=== PATIENT | female | born 1970 | race Caucasian/White ===

== ENCOUNTER 2018-10-15 11:24 | Observation (INO) | payer MEDICAID, OTHER ==
[2018-10-15 11:24] VITALS: BMI 33.2
[2018-10-15] MEDS ORDERED: Iohexol 240 (50 ml) PO STA (12:20)
[2018-10-15] MEDS ORDERED: Sodium Chloride 0.9% 1,000 ML IV ONE (12:20)
--- NOTE | 2018-10-15 12:34 | C.PDOC ---
History Of Present Illness 47 year old female with no pertinent medical history presents to the ED referred by PMD Dr. Johnson for evaluation of abdominal pain and vomiting ongoing for 3 weeks. Denies radiation of pain. Denies any diarrhea, constipation, dysuria, hematuria, chest pain, back pain, fever, or chills. Time Seen by Provider: 10/15/18 11:48 Chief Complaint (Nursing): Abdominal Pain History Per: Patient History/Exam Limitations: no limitations Onset/Duration Of Symptoms: Days Current Symptoms Are (Timing): Still Present Location Of Pain/Discomfort: Diffuse Radiation Of Pain To:: None Quality Of Discomfort: "Pain" Associated Symptoms: Vomiting. denies: Fever, Chills, Diarrhea, Back Pain, Chest Pain, Urinary Symptoms Past Medical History Reviewed: Historical Data, Nursing Documentation, Vital Signs Vital Signs: Last Vital Signs Temp 98.8 F 10/15/18 11:32 Pulse 97 H 10/15/18 12:06 Resp 17 10/15/18 12:06 BP 148/88 10/15/18 12:06 Pulse Ox 98 10/15/18 12:06 - Medical History PMH: HTN Surgical History: No Surg Hx - [facility] Procedures INJECT/INFUSE NEC (11/13/14) Family History: States: No Known Family Hx - Social History Hx Alcohol Use: No Hx Substance Use: No - Immunization History Hx Tetanus Toxoid Vaccination: No Hx Influenza Vaccination: Yes (04/2018) Hx Pneumococcal Vaccination: No Review Of Systems Except As Marked, All Systems Reviewed And Found Negative. Constitutional: Negative for: Fever, Chills Cardiovascular: Negative for: Chest Pain Respiratory: Negative for: Shortness of Breath Gastrointestinal: Positive for: Vomiting, Abdominal Pain. Negative for: Diarrhea Genitourinary: Negative for: Dysuria, Hematuria, Vaginal Discharge, Vaginal Bleeding Musculoskeletal: Negative for: Back Pain Physical Exam - Physical Exam Appears: Non-toxic, No Acute Distress Skin: Warm, Dry, No Rash Head: Normacephalic Eye(s): bilateral: Normal Inspection Nose: Normal Oral Mucosa: Moist Neck: Supple Chest: Symmetrical Cardiovascular: Rhythm Regular, No Murmur Respiratory: Normal Breath Sounds, No Rales, No Rhonchi, No Wheezing Gastrointestinal/Abdominal: Soft, Tenderness (mild epigastric tenderness), No Distention, No Guarding, No Rebound Extremity: Bilateral: Atraumatic, Normal Color And Temperature, Normal ROM Neurological/Psych: Oriented x3, Normal Speech Gait: Steady ED Course And Treatment - Laboratory Results Result Diagrams: 10/15/18 12:35 10/15/18 12:35 Lab Interpretation: Normal Urine POC: Negative O2 Sat by Pulse Oximetry: 98 (RA) Pulse Ox Interpretation: Normal - CT Scan/US No standard instances Other Rad Studies (CT/US): Read By Radiologist, Radiology Report Reviewed CT/US Interpretation: FINDINGS: LOWER THORAX: The visualized lungs are clear. LIVER: Fatty liver. Normal in size with homogeneous enhancement. No gross lesion or ductal dilatation. GALLBLADDER AND BILE DUCTS: Well distended. No calcified gallstones, wall thickening or pericholecystic fluid. PANCREAS: Normal in size with homogeneous enhancement. No gross lesion or ductal dilatation. SPLEEN: Normal in size and appearance. ADRENALS: No discrete nodule. KIDNEYS AND URETERS: Normal in size with homogeneous enhancement. No hydronephrosis. No solid mass. VASCULATURE: No aortic aneurysm. There are no aortic atherosclerotic calcifications or mural plaque present. BOWEL: Evaluation of the bowel is limited in the absence of oral contrast. The small bowel loops are normal in caliber. The colon is grossly normal in appearance. No bowel wall thickening or obstruction. APPENDIX: Normal appendix. PERITONEUM: No free fluid. No free air. LYMPH NODES: No enlarged lymph nodes. BLADDER: Well distended and normal in appearance. REPRODUCTIVE: The uterus is anteverted and normal in size. An IUD remains in satisfactory position. BONES: No acute fracture. There are bilateral pars interarticularis defects at L5 without spondylolisthesis. OTHER FINDINGS: None. IMPRESSION: No acute abdominal or pelvic abnormality. Fatty liver. Progress Note: Treated with IVF NSS Reassessment Condition: Improved - Physician Consult Information Physician Contacted: Rosalina Johnson Outcome Of Conversation: admit Medical Decision Making Medical Decision Making: Plan - CT abd/pel - Bloodwork - Pepcid 20mg IVP - IV Fluids - HCG Urine - UA Disposition Discussed With : Rosalina Johnson Doctor Will See Patient In The: Hospital - Disposition Disposition: HOSPITALIZED Disposition Time: 16:00 Condition: STABLE - POA Present On Arrival: None - Clinical Impression Clinical Impression: Abdominal pain, Nausea, Vomiting - PA / INSURANCE CLAIMS ASSISTANT / Resident Statement MD/DO has reviewed & agrees with the documentation as recorded. - Scribe Statement The provider has reviewed the documentation as recorded by the Scribe Rosa Holden All medical record entries made by the Talitaibe were at my direction and p ersonally dictated by me. I have reviewed the chart and agree that the record accurately reflects my personal performance of the history, physical exam, medical decision making, and the department course for this patient. I have also personally directed, reviewed, and agree with the discharge instructions and disposition. Decision To Admit - Pt Status Changed To: Hospital Disposition Of: [facility] Extended Stay Bed - . Bed Request Type: Regular Admitting Physician: Rosalina Johnson Patient Diagnosis: Abdominal pain, Nausea, Vomiting
[2018-10-15] MEDS ORDERED: Sodium Chloride 0.9% 1,000 ML ONE (12:38)
[2018-10-15] MEDS ORDERED: Iohexol 240 (50 ml) ONE (12:39)
[2018-10-15 12:40] LABS: BASO % 0.4 % (0.0-2.0); EOS % 0.4 % (0.0-4.0); HEMOGLOBIN 15.2 g/dL (11.0-16.0); LYMPH # 1.8 K/uL (1.0-4.3); LYMPH % 22.1 % (20.0-40.0); MEAN CELL VOLUME 89.7 fL (81.0-99.0); MEAN CORPUSCULAR HEMOGLOBIN 31.5 pg (27.0-31.0); MEAN CORPUSCULAR HGB CONC 35.1 g/dL (33.0-37.0); MEAN PLATELET VOLUME 8.8 fL (7.2-11.7); MONO # 0.6 K/uL (0.0-0.8); MONO % 7.4 % (0.0-10.0); NEUT # 5.7 K/uL (1.8-7.0); NEUT % 69.7 % (50.0-75.0); RBC 4.82 Mil/uL (3.80-5.20); RED CELL DISTRIBUTION WIDTH 13.6 % (11.5-14.5); WHITE BLOOD COUNT 8.1 K/uL (4.8-10.8)
[2018-10-15 12:45] LABS: HCG,QUALITATIVE URINE NEGATIVE (NEGATIVE)
[2018-10-15 12:47] LABS: SQUAMOUS EPITHIAL < 1 /hpf (0-5); URINE BILIRUBIN NEGATIVE (NEGATIVE); URINE BLOOD 1+ (NEGATIVE); URINE CLARITY Clear (Clear); URINE COLOR Straw (YELLOW); URINE GLUCOSE (UA) NORMAL (Normal); URINE LEUKOCYTE ESTERASE NEG Leu/uL (Negative); URINE PROTEIN NEGATIVE (NEGATIVE); URINE UROBILINOGEN NORMAL mg/dL (0.2-1.0)
[2018-10-15 13:05] LABS: ALB/GLOB RATIO 1.6 (1.0-2.1); ALBUMIN 4.9 g/dL (3.5-5.0); ALT/SGPT 13 U/L (9-52); AST/SGOT 29 U/L (14-36); BLOOD UREA NITROGEN 7 mg/dL (7-17); CALCIUM 9.4 mg/dl (8.6-10.4); GFR NON-AFRICAN AMERICAN > 60; LIPASE 72 U/L (23-300)
[2018-10-15] MEDS ORDERED: Iodixanol 320 MG/ML 100 ML BOTTLE IV ONE (14:31)
--- NOTE | 2018-10-15 15:49 | CT ---
Date of service: 10/15/2018 PROCEDURE: CT Abdomen and Pelvis with contrast HISTORY: Abdominal pain COMPARISON: None available. TECHNIQUE: CT scan of the abdomen and pelvis was performed after administration of intravenous contrast. Oral contrast was administered. Coronal and sagittal reformatted images were obtained. Contrast dose 100 mL Visipaque 320 Radiation dose: Total exam DLP = 1090.18 mGy-cm. This CT exam was performed using one or more of the following dose reduction techniques: Automated exposure control, adjustment of the mA and/or kV according to patient size, and/or use of iterative reconstruction technique. FINDINGS: LOWER THORAX: The visualized lungs are clear. LIVER: Fatty liver. Normal in size with homogeneous enhancement. No gross lesion or ductal dilatation. GALLBLADDER AND BILE DUCTS: Well distended. No calcified gallstones, wall thickening or pericholecystic fluid. PANCREAS: Normal in size with homogeneous enhancement. No gross lesion or ductal dilatation. SPLEEN: Normal in size and appearance. ADRENALS: No discrete nodule. KIDNEYS AND URETERS: Normal in size with homogeneous enhancement. No hydronephrosis. No solid mass. VASCULATURE: No aortic aneurysm. There are no aortic atherosclerotic calcifications or mural plaque present. BOWEL: Evaluation of the bowel is limited in the absence of oral contrast. The small bowel loops are normal in caliber. The colon is grossly normal in appearance. No bowel wall thickening or obstruction. APPENDIX: Normal appendix. PERITONEUM: No free fluid. No free air. LYMPH NODES: No enlarged lymph nodes. BLADDER: Well distended and normal in appearance. REPRODUCTIVE: The uterus is anteverted and normal in size. An IUD remains in satisfactory position. BONES: No acute fracture. There are bilateral pars interarticularis defects at L5 without spondylolisthesis OTHER FINDINGS: None. IMPRESSION: No acute abdominal or pelvic abnormality. Fatty liver.
--- NOTE | 2018-10-15 18:34 | CP.PCM.CON ---
History of Present Illness - History of Present Illness History of Present Illness: ASked to do GI consult for abd pain. Daughter present. 47 yo female h/o HTN- reports 3 weeks epig shreya- burning , left side, + Nausea, + constipation. Denies RB, melena, NSAID, etoh Review of Systems - Constitutional Constitutional: Anorexia, Fatigue, Headache, Malaise, Weight Loss, Weakness - EENT Eyes: absent: Diplopia Nose/Mouth/Throat: absent: Dental Pain - Cardiovascular Cardiovascular: absent: Chest Pain, Chest Pain at Rest - Respiratory Respiratory: absent: Cough, Dyspnea, Hemoptysis, Wheezing - Gastrointestinal Gastrointestinal: Abdominal Pain, Constipation, Nausea, Vomiting. absent: Hematemesis, Hematochezia, Loose Stools, Melena - Genitourinary Genitourinary: absent: Hematuria - Musculoskeletal Musculoskeletal: absent: Muscle Weakness - Integumentary Integumentary: absent: Jaundice - Neurological Neurological: Headaches. absent: Convulsions, Frequent Falls - Psychiatric Psychiatric: absent: Confusion Past Patient History - Tetanus Immunizations Tetanus Immunization: Unknown - Past Social History Smoking Status: Never Smoked - CARDIAC Hx Hypertension: Yes - PSYCHIATRIC Hx Substance Use: No - SURGICAL HISTORY Other/Comment: Aryan rojas 2011 - ANESTHESIA Hx Anesthesia: Yes Hx Anesthesia Reactions: No Meds Allergies/Adverse Reactions: Allergies Allergy/AdvReac Type Severity Reaction Status Date / Time No Known Allergies Allergy Verified 10/15/18 11:36 - Medications Medications: Current Medications Amlodipine Besylate (Norvasc) 5 mg PO Q12 [facility] Pantoprazole Sodium (Protonix Inj) 40 mg IVP Q12H [facility] Last Admin: 10/15/18 14:40 Dose: 40 mg Pneumococcal Polyvalent Vaccine (Pneumovax 23 Vaccine) 0.5 ml IM .ONCE ONE Stop: 10/16/18 10:01 Physical Exam - Constitutional Appears: Well - Respiratory Exam Respiratory Exam: Clear to Auscultation Bilateral - Cardiovascular Exam Cardiovascular Exam: RRR - GI/Abdominal Exam GI & Abdominal Exam: Normal Bowel Sounds, Soft. absent: Guarding, Hernia, Mass, Rebound, Tenderness - Neurological Exam Neurological exam: Alert, Oriented x3 Results - Vital Signs Recent Vital Signs: Last Vital Signs Temp 98.5 F 10/15/18 16:00 Pulse 81 10/15/18 16:00 Resp 20 10/15/18 16:00 BP 127/84 10/15/18 16:00 Pulse Ox 98 10/15/18 17:59 - Labs Result Diagrams: 10/15/18 12:35 10/15/18 12:35 Labs: Laboratory Results - last 24 hr 10/15/18 10/15/18 10/15/18 12:35 12:35 12:35 WBC 8.1 RBC 4.82 Hgb 15.2 Hct 43.2 MCV 89.7 MCH 31.5 H MCHC 35.1 RDW 13.6 Plt Count 251 MPV 8.8 Neut % (Auto) 69.7 Lymph % (Auto) 22.1 [place] % (Auto) 7.4 Eos % (Auto) 0.4 Baso % (Auto) 0.4 Neut # (Auto) 5.7 Lymph # (Auto) 1.8 [place] # (Auto) 0.6 Eos # (Auto) 0.0 Baso # (Auto) 0.0 Sodium 135 Potassium 3.6 Chloride 100 Carbon Dioxide 27 Anion Gap 13 BUN 7 Creatinine 0.6 L Est GFR ( Amer) > 60 Est GFR (Non-Af Amer) > 60 Random Glucose 97 Calcium 9.4 Total Bilirubin 1.2 AST 29 ALT 13 Alkaline Phosphatase 74 Total Protein 8.0 Albumin 4.9 Globulin 3.1 Albumin/Globulin Ratio 1.6 Lipase 72 Urine Color Straw Urine Clarity Clear Urine pH 7.0 Ur Specific [place] 1.006 Urine Protein Negative Urine Glucose (UA) Normal Urine Ketones Negative Urine Blood 1+ H Urine Nitrate Negative Urine Bilirubin Negative Urine Urobilinogen Normal Ur Leukocyte Esterase Neg Urine WBC (Auto) 1 Urine RBC (Auto) 4 H Ur Squamous Epith Cells < 1 Urine HCG, Qual Negative Assessment & Plan (1) HTN (hypertension) Status: Acute (2) Abdominal pain Assessment and Plan: epig- labs and CT are neg. Consdier PUD, gastritis. REc- PPI, EGD, treat constip Status: Acute (3) Nausea Status: Acute (4) Constipated Status: Acute
--- NOTE | 2018-10-15 18:56 | CP.PCM.HP ---
History of Present Illness - History of Present Illness History of Present Illness: Chief complaint: Severe abdominal pain HPI: 46-year-old female with a history of hypertension came to the initially to my office, at that time she was complaining of ongoing abdominal pain patient started having the pain in April following sickness, and her symptoms slowly got worse. Initially she had an episode of abdominal pain, associate with the vomiting and the following that she developed a severe disease process underwent to the emergency room. After that she was feeling well, until July then she started noticing sudden onset of severe abdominal pain again and at one time she had an episode of dizziness and falls she did not go to the hospital. She came to my office with the persistent abdominal pain, epigastric in nature, sometimes radiated to the left upper quadrant and and also into the back region. I ordered an sonogram labs, which was negative. But as the patient persistently having pain I admitted her to the hospital intractable abdominal discomfort. Past medical history high blood pressure Allergy no known drug allergy Personal history non-smoker nonalcoholic Family history significant for hypertension CAD History of gastric cancer in the family. Current medications amlodipine. Review of system: Patient denies any headache or visual symptoms no chest pain or shortness of breath, no palpitation. Epigastric abdominal pain, and also associate with nausea and vomiting frequently. On examination: Vital signs are stable otherwise. Chest bilateral good air entry, no wheezing or rales noted, regular heart sounds noted, abdomen epigastric tenderness severely noted, as well as left lower quadrant tenderness noted. [employer] alert awake oriented x3 no functional neurological deficit Patient's labs reviewed Nonspecific. CAT scan of the abdomen showing no acute pathology Assessment and recommendation: 47-year-old female with a history hypertension came to the emergency room with acute intractable abdominal pain. Will get a GI evaluation. Pain management. Protonix. DVT and GI prophylaxis and will follow the patient Present on Admission - Present on Admission Any Indicators Present on Admission: No History of DVT/PE: No History of Uncontrolled Diabetes: No Urinary Catheter: No Decubitus Ulcer Present: No Past Patient History - Tetanus Immunizations Tetanus Immunization: Unknown - Past Social History Smoking Status: Never Smoked - CARDIAC Hx Hypertension: Yes - PSYCHIATRIC Hx Substance Use: No - SURGICAL HISTORY Other/Comment: Aryan rojas 2011 - ANESTHESIA Hx Anesthesia: Yes Hx Anesthesia Reactions: No Meds Home Medications: Home Medication List Medication Instructions Recorded Confirmed Type Ondansetron HCl [Zofran] 4 mg PO Q12 PRN #30 tablet 10/17/18 Rx Pantoprazole [Protonix] 40 mg PO HS #30 ect 10/17/18 Rx amLODIPine [Norvasc] 10 mg PO DAILY #30 tab 10/17/18 Rx Allergies/Adverse Reactions: Allergies Allergy/AdvReac Type Severity Reaction Status Date / Time No Known Allergies Allergy Verified 10/15/18 11:36 Results - Vital Signs Recent Vital Signs: Last Vital Signs Temp 98.5 F 10/15/18 16:00 Pulse 81 10/15/18 16:00 Resp 20 10/15/18 16:00 BP 127/84 10/15/18 16:00 Pulse Ox 98 10/15/18 17:59 - Labs Result Diagrams: 10/15/18 12:35 10/15/18 12:35 Labs: Laboratory Results - last 24 hr 10/15/18 10/15/18 10/15/18 12:35 12:35 12:35 WBC 8.1 RBC 4.82 Hgb 15.2 Hct 43.2 MCV 89.7 MCH 31.5 H MCHC 35.1 RDW 13.6 Plt Count 251 MPV 8.8 Neut % (Auto) 69.7 Lymph % (Auto) 22.1 [place] % (Auto) 7.4 Eos % (Auto) 0.4 Baso % (Auto) 0.4 Neut # (Auto) 5.7 Lymph # (Auto) 1.8 [place] # (Auto) 0.6 Eos # (Auto) 0.0 Baso # (Auto) 0.0 Sodium 135 Potassium 3.6 Chloride 100 Carbon Dioxide 27 Anion Gap 13 BUN 7 Creatinine 0.6 L Est GFR ( Amer) > 60 Est GFR (Non-Af Amer) > 60 Random Glucose 97 Calcium 9.4 Total Bilirubin 1.2 AST 29 ALT 13 Alkaline Phosphatase 74 Total Protein 8.0 Albumin 4.9 Globulin 3.1 Albumin/Globulin Ratio 1.6 Lipase 72 Urine Color Straw Urine Clarity Clear Urine pH 7.0 Ur Specific [place] 1.006 Urine Protein Negative Urine Glucose (UA) Normal Urine Ketones Negative Urine Blood 1+ H Urine Nitrate Negative Urine Bilirubin Negative Urine Urobilinogen Normal Ur Leukocyte Esterase Neg Urine WBC (Auto) 1 Urine RBC (Auto) 4 H Ur Squamous Epith Cells < 1 Urine HCG, Qual Negative
[2018-10-15] MEDS: Dextrose 5%/0.45% NS 1,000 ML IV SCH (21:47)
--- NOTE | 2018-10-16 06:53 | CT ---
Date of service: 10/15/2018 PROCEDURE: CT HEAD WITHOUT CONTRAST. HISTORY: Headache COMPARISON: None available. TECHNIQUE: Axial computed tomography images were obtained through the head/brain without intravenous contrast. Radiation dose: Total exam DLP = 1048.01 mGy-cm. This CT exam was performed using one or more of the following dose reduction techniques: Automated exposure control, adjustment of the mA and/or kV according to patient size, and/or use of iterative reconstruction technique. FINDINGS: HEMORRHAGE: No intracranial hemorrhage. BRAIN: No mass effect or edema. No atrophy or chronic microvascular ischemic changes. Scattered parenchymal calcifications for example in the left basal ganglia measuring up to 4 millimeters, right parietal region measuring 2 millimeters, left occipital region measuring 5 millimeters, left posterior medial temporal region measuring 5 millimeters and additional scattered calculi. VENTRICLES: Unremarkable. No hydrocephalus. CALVARIUM: Unremarkable. PARANASAL SINUSES: Unremarkable as visualized. No significant inflammatory changes. MASTOID AIR CELLS: Unremarkable as visualized. No inflammatory changes. OTHER FINDINGS: Streak artifact from metal earrings limits evaluation. IMPRESSION: No acute intracranial abnormality. Few scattered parenchymal calcifications as described above. If symptoms persists, consider correlation with MRI. A preliminary report was generated at 3:24 a.m. on 10/16/[address] Cindy Beverly from [employer].
[2018-10-16] MEDS ORDERED: Pneumococcal 23-Valent Vaccine IM ONE (10:00)
[2018-10-16] MEDS ORDERED: Lactated Ringer's 1,000 ML IV ONE (14:10)
[2018-10-16] MEDS ORDERED: Propofol 10 mg/ml Inj (20 ML) ONE (14:17)
[2018-10-16] MEDS ORDERED: Midazolam 2 MG/2 ML VIAL ONE (14:17)
[2018-10-16] MEDS: Dextrose 5%/0.45% NS 1,000 ML IV SCH ×2 (16:09→16:57)
[2018-10-17 00:18] VITALS: RESP 20
[2018-10-17 07:39] VITALS: BP 104/68; PULSE 69; TEMP 99; O2SAT 96
--- NOTE | 2018-10-17 08:37 | CP.PCM.PN ---
Subjective - Date & Time of Evaluation Date of Evaluation: 10/16/18 Time of Evaluation: 08:37 - Subjective Subjective: The patient had upper endoscopy. No evidence of any acute ulcers noted. But the diffuse gastritis present. Clinically patient is stable. Will possibly discharge the patient tomorrow Objective - Vital Signs/Intake and Output Vital Signs (last 24 hours): Temp Pulse Resp BP Pulse Ox 99 F 69 20 104/68 96 10/17/18 07:38 10/17/18 07:38 10/17/18 07:38 10/17/18 07:38 10/17/18 08:07 Intake and Output: 10/17/18 10/17/18 06:59 18:59 Intake Total 1280 Balance 1280 - Medications Medications: Current Medications Acetaminophen (Tylenol 325mg Tab) 650 mg PO Q6 PRN PRN Reason: Pain, Mild (1-3) Last Admin: 10/17/18 06:21 Dose: 650 mg Amlodipine Besylate (Norvasc) 5 mg PO Q12 [facility] Last Admin: 10/16/18 21:31 Dose: 5 mg Dextrose/Sodium Chloride (Dextrose 5%/0.45% Ns 1000 Ml) 1,000 mls @ 50 mls/hr IV .Q20H [facility] Last Admin: 10/16/18 16:57 Dose: 50 mls/hr Ondansetron HCl (Zofran Inj) 4 mg IVP Q8H PRN PRN Reason: Nausea/Vomiting Last Admin: 10/15/18 22:10 Dose: 4 mg Pantoprazole Sodium (Protonix Inj) 40 mg IVP Q12H [facility] Last Admin: 10/17/18 03:06 Dose: 40 mg - Labs Labs: 10/15/18 12:35 10/15/18 12:35
--- NOTE | 2018-10-17 08:37 | CP.PCM.DIS ---
Provider - Provider Date of Admission: 10/15/18 12:59 Attending physician: Rosalina Johnson MD Consults: 10/15/18 14:06 Gastroenterology Consult Routine Comment: Consulting Provider: Deejay Saenz Consulting Physician: Deejay Saenz Reason for Consult: abd pain Time Spent in preparation of Discharge (in minutes): 45 Hospital Course - Lab Results Lab Results: Most Recent Lab Values WBC 8.1 K/uL (4.8-10.8) 10/15/18 12:35 RBC 4.82 Mil/uL (3.80-5.20) 10/15/18 12:35 Hgb 15.2 g/dL (11.0-16.0) 10/15/18 12:35 Hct 43.2 % (34.0-47.0) 10/15/18 12:35 MCV 89.7 fL (81.0-99.0) 10/15/18 12:35 MCH 31.5 pg (27.0-31.0) H 10/15/18 12:35 MCHC 35.1 g/dL (33.0-37.0) 10/15/18 12:35 RDW 13.6 % (11.5-14.5) 10/15/18 12:35 Plt Count 251 K/uL (130-400) 10/15/18 12:35 MPV 8.8 fL (7.2-11.7) 10/15/18 12:35 Neut % (Auto) 69.7 % (50.0-75.0) 10/15/18 12:35 Lymph % (Auto) 22.1 % (20.0-40.0) 10/15/18 12:35 [place] % (Auto) 7.4 % (0.0-10.0) 10/15/18 12:35 Eos % (Auto) 0.4 % (0.0-4.0) 10/15/18 12:35 Baso % (Auto) 0.4 % (0.0-2.0) 10/15/18 12:35 Neut # (Auto) 5.7 K/uL (1.8-7.0) 10/15/18 12:35 Lymph # (Auto) 1.8 K/uL (1.0-4.3) 10/15/18 12:35 [place] # (Auto) 0.6 K/uL (0.0-0.8) 10/15/18 12:35 Eos # (Auto) 0.0 K/uL (0.0-0.7) 10/15/18 12:35 Baso # (Auto) 0.0 K/uL (0.0-0.2) 10/15/18 12:35 Sodium 135 mmol/L (132-148) 10/15/18 12:35 Potassium 3.6 mmol/L (3.6-5.2) 10/15/18 12:35 Chloride 100 mmol/L (98-107) 10/15/18 12:35 Carbon Dioxide 27 mmol/L (22-30) 10/15/18 12:35 Anion Gap 13 (10-20) 10/15/18 12:35 BUN 7 mg/dL (7-17) 10/15/18 12:35 Creatinine 0.6 mg/dL (0.7-1.2) L 10/15/18 12:35 Est GFR ( Amer) > 60 10/15/18 12:35 Est GFR (Non-Af Amer) > 60 10/15/18 12:35 Random Glucose 97 mg/dL (65-105) 10/15/18 12:35 Calcium 9.4 mg/dl (8.6-10.4) 10/15/18 12:35 Total Bilirubin 1.2 mg/dL (0.2-1.3) 10/15/18 12:35 AST 29 U/L (14-36) 10/15/18 12:35 ALT 13 U/L (9-52) 10/15/18 12:35 Alkaline Phosphatase 74 U/L (38-126) 10/15/18 12:35 Total Protein 8.0 g/dL (6.3-8.3) 10/15/18 12:35 Albumin 4.9 g/dL (3.5-5.0) 10/15/18 12:35 Globulin 3.1 gm/dL (2.2-3.9) 10/15/18 12:35 Albumin/Globulin Ratio 1.6 (1.0-2.1) 10/15/18 12:35 Lipase 72 U/L (23-300) 10/15/18 12:35 Urine Color Straw (YELLOW) 10/15/18 12:35 Urine Clarity Clear (Clear) 10/15/18 12:35 Urine pH 7.0 (5.0-8.0) 10/15/18 12:35 Ur Specific [place] 1.006 (1.003-1.030) 10/15/18 12:35 Urine Protein Negative mg/dL (NEGATIVE) 10/15/18 12:35 Urine Glucose (UA) Normal mg/dL (Normal) 10/15/18 12:35 Urine Ketones Negative mg/dL (NEGATIVE) 10/15/18 12:35 Urine Blood 1+ (NEGATIVE) H 10/15/18 12:35 Urine Nitrate Negative (NEGATIVE) 10/15/18 12:35 Urine Bilirubin Negative (NEGATIVE) 10/15/18 12:35 Urine Urobilinogen Normal mg/dL (0.2-1.0) 10/15/18 12:35 Ur Leukocyte Esterase Neg Trevon/uL (Negative) 10/15/18 12:35 Urine WBC (Auto) 1 /hpf (0-5) 10/15/18 12:35 Urine RBC (Auto) 4 /hpf (0-3) H 10/15/18 12:35 Ur Squamous Epith Cells < 1 /hpf (0-5) 10/15/18 12:35 Urine HCG, Qual Negative (NEGATIVE) 10/16/18 07:04 - Hospital Course Hospital Course: Chief complaint: Severe abdominal pain HPI: 46-year-old female with a history of hypertension came to the initially to my office, at that time she was complaining of ongoing abdominal pain patient started having the pain in April following sickness, and her symptoms slowly got worse. Initially she had an episode of abdominal pain, associate with the vomiting and the following that she developed a severe disease process underwent to the emergency room. After that she was feeling well, until July then she started noticing sudden onset of severe abdominal pain again and at one time she had an episode of dizziness and falls she did not go to the hospital. She came to my office with the persistent abdominal pain, epigastric in nature, sometimes radiated to the left upper quadrant and and also into the back region. I ordered an sonogram labs, which was negative. But as the patient persistently having pain I admitted her to the hospital intractable abdominal discomfort. Past medical history high blood pressure Allergy no known drug allergy Personal history non-smoker nonalcoholic Family history significant for hypertension CAD History of gastric cancer in the family. Current medications amlodipine. Review of system: Patient denies any headache or visual symptoms no chest pain or shortness of breath, no palpitation. Epigastric abdominal pain, and also associate with nausea and vomiting frequently. On examination: Vital signs are stable otherwise. Chest bilateral good air entry, no wheezing or rales noted, regular heart sounds noted, abdomen epigastric tenderness severely noted, as well as left lower quadrant tenderness noted. 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 CAT scan of the abdomen showing no acute pathology Assessment and recommendation: 47-year-old female with a history hypertension came to the emergency room with acute intractable abdominal pain. Will get a GI evaluation. Pain management. Protonix. 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 Patient underwent upper endoscopy. Upper endoscopy showing evidence of diffuse gastritis. Biopsies were taken. The pathology is pending. Patient is clinically stable. She will be discharged home. She will follow-up as an outpatient Final diagnosis: Acute intractable abdominal pain P H. pylori infection possible. Pathology to be followed as an outpatient. We will follow the patient Patient will continue Protonix. Antihypertensives. Discharge Plan - Discharge Medications Prescriptions: amLODIPine [Norvasc] 10 mg PO DAILY #30 tab Pantoprazole [Protonix] 40 mg PO HS #30 ect Ondansetron HCl [Zofran] 4 mg PO Q12 PRN #30 tablet PRN Reason: Nausea/Vomiting - Follow Up Plan Condition: STABLE Disposition: HOME/ ROUTINE Instructions: Acute Abdominal Pain (DC), Acute Abdominal Pain (GEN), Hypertension (DC), Hypertension (GEN) Additional Instructions: Please call and follow up in the office in 2 weeks. Referrals: Rosalina Johnson MD [Staff Provider] -
--- NOTE | 2018-10-17 08:42 | CP.PCM.PN ---
Subjective - Date & Time of Evaluation Date of Evaluation: 10/17/18 Time of Evaluation: 08:00 - Subjective Subjective: f/u abd pain Reports less abdom pain. Denies vomit, RB, melena, SZS, CP, SOB, AYON cough, hematuria Objective - Vital Signs/Intake and Output Vital Signs (last 24 hours): Temp Pulse Resp BP Pulse Ox 99 F 69 20 104/68 96 10/17/18 07:38 10/17/18 07:38 10/17/18 07:38 10/17/18 07:38 10/17/18 08:07 Intake and Output: 10/17/18 10/17/18 06:59 18:59 Intake Total 1280 Balance 1280 - Medications Medications: Current Medications Acetaminophen (Tylenol 325mg Tab) 650 mg PO Q6 PRN PRN Reason: Pain, Mild (1-3) Last Admin: 10/17/18 06:21 Dose: 650 mg Amlodipine Besylate (Norvasc) 5 mg PO Q12 JIM Last Admin: 10/16/18 21:31 Dose: 5 mg Dextrose/Sodium Chloride (Dextrose 5%/0.45% Ns 1000 Ml) 1,000 mls @ 50 mls/hr IV .Q20H JIM Last Admin: 10/16/18 16:57 Dose: 50 mls/hr Ondansetron HCl (Zofran Inj) 4 mg IVP Q8H PRN PRN Reason: Nausea/Vomiting Last Admin: 10/15/18 22:10 Dose: 4 mg Pantoprazole Sodium (Protonix Inj) 40 mg IVP Q12H JIM Last Admin: 10/17/18 03:06 Dose: 40 mg - Labs Labs: 10/15/18 12:35 10/15/18 12:35 - Constitutional Appears: Well - Respiratory Exam Respiratory Exam: Clear to Ausculation Bilateral - Cardiovascular Exam Cardiovascular Exam: RRR - GI/Abdominal Exam GI & Abdominal Exam: Soft, Normal Bowel Sounds. absent: Guarding, Tenderness, Mass, Rebound - Extremities Exam Extremities Exam: absent: Calf Tenderness - Neurological Exam Neurological Exam: Alert, Awake, Oriented x3 Assessment and Plan (1) HTN (hypertension) Status: Acute (2) Abdominal pain Assessment & Plan: gastritis p- PPI, bland diet Status: Acute (3) Nausea Status: Acute (4) Constipated Assessment & Plan: treat with laxatives- colace, miralax Status: Acute
[2018-10-17] MEDS ORDERED: Pneumococcal 23-Valent Vaccine IM ONE (10:45)
== END 2018-10-17 11:06 | disposition home or self-care (01) ==
LOC: C.ER 11:24 → C.9E 12:59 → C.3T 13:05
PROVIDERS: ADMIT Internal Medicine; ATTEND Internal Medicine
DX: K29.00 Acute gastritis without bleeding (principal); K29.50 Unspecified chronic gastritis without bleeding; B96.81 Helicobacter pylori [H. pylori] as the cause of diseases classified elsewhere; K44.9 Diaphragmatic hernia without obstruction or gangrene; K59.00 Constipation, unspecified; I10 Essential (primary) hypertension; Z79.899 Other long term (current) drug therapy; Z80.0 Family history of malignant neoplasm of digestive organs; Z82.49 Family history of ischemic heart disease and other diseases of the circulatory system
CPT/HCPCS: 43239; 70450; 74177; 80053; 81001; 83690; 84703; 85025; 88305; 90471; 90732; 96361; 96374; 96375; 96376; 99285; C9113; G0378; J2405; J7030; J7042; J7120; Q9966; Q9967